=== PATIENT | female | born 1965 | race Caucasian/White ===

== ENCOUNTER 2023-07-13 14:57 | Emergency (ER) | payer MEDICARE, MEDICAID ==
[~2023-07-13] VITALS: Ht 167.6 cm; Wt 1.0 kg
[~2023-07-13 14:57] MED LIST: ALBU6.7H14 INH; NO HOME MEDS
[2023-07-13 15:05] VITALS: BP 95/72; PULSE 83; RESP 18; TEMP 97.9; O2SAT 94
[2023-07-13 16:18] LABS: ALANINE AMINOTRANSFERASE 51 U/L (12-78); ALBUMIN 3.7 G/DL (3.4-5.0); ALBUMIN/GLOBULIN RATIO 1.1 (1.1-1.5); ALKALINE PHOSPHATASE 95 IU/L (46-116); ANION GAP 5 (8-16); ASPARTATE AMINO TRANSFERASE 40 U/L (10-37); BILIRUBIN,TOTAL 0.8 MG/DL (0.1-1.0); BLOOD UREA NITROGEN 13 MG/DL (7-18); BUN/CREATININE RATIO 14.4 (10.0-20.0); CALCIUM 8.9 MG/DL (8.5-10.1); CHLORIDE 103 MMOL/L (99-107); GLUCOSE 107 MG/DL (70-104); LIPASE 24 U/L (16-77); POTASSIUM 4.1 MMOL/L (3.5-5.1); SODIUM 133 MMOL/L (135-145); TOTAL CARBON DIOXIDE 24.6 MMOL/L (24-32); eCRCL 1 ML/MIN; eGFR 65 ML/MIN
[2023-07-13 16:19] LABS: BASOPHILS % (AUTO) 0.1 % (0-1); EOSINOPHILS # (AUTO) 0.1 X10'3 (0-0.9); EOSINOPHILS % (AUTO) 0.7 % (0-6); HEMATOCRIT 45.5 % (35.0-45.0); HEMOGLOBIN 15.6 g/dl (12.0-16.0); LYMPHOCYTES # (AUTO) 1.7 X10'3 (1.1-4.8); LYMPHOCYTES % (AUTO) 23.7 % (21-51); MEAN CORPUSCULAR HEMOGLOBIN 32.5 PG (27.0-31.0); MEAN CORPUSCULAR HGB CONC 34.3 g/dL (33.0-36.5); MEAN CORPUSCULAR VOLUME 94.5 FL (78-98); MEAN PLATELET VOLUME 8.5 FL (7.4-10.4); MONOCYTES # (AUTO) 0.6 X10'3 (0-0.9); MONOCYTES % (AUTO) 8.4 % (2-12); NEUTROPHILS # (AUTO) 4.7 X10'3 (1.8-7.7); NEUTROPHILS % (AUTO) 67.1 % (42-75); PLATELET COUNT 197 X10'3 (140-440); RED BLOOD COUNT 4.82 X10'6 (4.20-5.60); RED CELL DISTRIBUTION WIDTH 12.8 % (11.5-14.5)
[2023-07-13 16:20] LABS: BILIRUBIN,URINE SMALL (Neg); CLARITY,URINE CLEAR (Clear); COLOR,URINE YELLOW (Yellow); GLUCOSE, URINE NEGATIVE (Neg); KETONES,URINE TRACE mg/dl (Neg); LEUKOCYTE ESTERASE ,URINE TRACE (Neg); NITRITES, URINE NEGATIVE (Neg); OCCULT BLOOD,URINE NEGATIVE (Neg); PH,URINE 5.5 (4.8-8.0); PROTEIN,URINE NEGATIVE (Neg); UROBILINOGEN,URINE 0.2 E.U/dL (0.2-1.0)
[2023-07-13 16:23] LABS: UA COLLECTION TYPE CLN CATCH MIDSTREAM
[2023-07-13 16:24] LABS: BACTERIA,URINE NONE SEEN /HPF (Neg); MUCUS STRANDS MODERATE /LPF (Neg); RBC,URINE NONE SEEN /HPF (0-2); SQUAMOUS EPITHELIAL CELL,UR FEW /LPF (FEW); WBC,URINE 0-4 /HPF (0-4)
== END 2023-07-14 02:22 | disposition left against medical advice (07) ==
LOC: ER 14:57
DX: R11.2 Nausea with vomiting, unspecified (principal); Z53.21 Procedure and treatment not carried out due to patient leaving prior to being seen by health care provider
CPT/HCPCS: 36415; 80053; 81001; 83690; 85025; 87088; 99281

== ENCOUNTER 2023-07-14 12:38 | Emergency (ER) | payer MEDICARE, MEDICAID | END 2023-07-14 13:51 | disposition left against medical advice (07) | LOC: ER 12:39 | DX: R10.9 Unspecified abdominal pain (principal); Z53.21 Procedure and treatment not carried out due to patient leaving prior to being seen by health care provider ==

== ENCOUNTER 2024-01-11 16:06 | Emergency (ER) | payer MEDICARE, MEDICAID ==
[~2024-01-11] VITALS: Ht 162.6 cm; Wt 72.7 kg
[2024-01-11] MEDS ORDERED: BENZ-38 PO (18:25)
[2024-01-11] MEDS ORDERED: GUAI600T45 PO (18:25)
[2024-01-11] MEDS ORDERED: PRED20TA PO (18:25)
[2024-01-11] MEDS ORDERED: AMOX-117 PO (18:25)
[2024-01-11] MEDS ORDERED: ALBU18HF2 INH (18:25)
[2024-01-11] MEDS: amox tr/potassium clavulanate 875/125mg TAB PO ONE (18:50)
[2024-01-11] MEDS: predniSONE 20 mg tablet PO ONE (18:50)
[2024-01-11 18:52] VITALS: BP 139/83; PULSE 84; RESP 18; TEMP 97.9; O2SAT 95
== END 2024-01-11 18:55 | disposition home or self-care (01) ==
LOC: ER 16:06
DX: J18.1 Lobar pneumonia, unspecified organism (principal); Z88.1 Allergy status to other antibiotic agents; Z79.899 Other long term (current) drug therapy; Z79.2 Long term (current) use of antibiotics; Z90.49 Acquired absence of other specified parts of digestive tract
CPT/HCPCS: 71046; 71250; 99284; J7512

== ENCOUNTER 2024-08-07 15:00 | Emergency (ER) | payer MEDICARE, MEDICAID ==
[~2024-08-07] VITALS: Ht 165.1 cm; Wt 73.5 kg
[~2024-08-07 15:00] MED LIST changes: +ALBU18HF2 INH; +GUAI600T45 PO
[2024-08-07] MEDS: LIDOcaine 1% 30ml preserv. free vial IJ STA (18:04)
[2024-08-07] MEDS: HYDROcodone/acetaminophen 10/325mg tab PO ONE (18:08)
[2024-08-07] MEDS: LIDOcaine/epinephrine/tetracaine TOPICAL sol 3 ML syringe TOP ONE (18:09)
[2024-08-07] MEDS ORDERED: HYDR-3965 PO ×2 (18:40→18:42)
[2024-08-07 19:07] VITALS: BP 120/89; PULSE 70; RESP 16; TEMP 98.5; O2SAT 98
== END 2024-08-07 19:11 | disposition home or self-care (01) ==
LOC: ER 15:00
DX: S62.011A Displaced fracture of distal pole of navicular [scaphoid] bone of right wrist, initial encounter for closed fracture (principal); S63.602A Unspecified sprain of left thumb, initial encounter; S16.1XXA Strain of muscle, fascia and tendon at neck level, initial encounter; Z88.1 Allergy status to other antibiotic agents; Z79.899 Other long term (current) drug therapy; Z90.49 Acquired absence of other specified parts of digestive tract; W01.0XXA Fall on same level from slipping, tripping and stumbling without subsequent striking against object, initial encounter; Y93.89 Activity, other specified; Y92.89 Other specified places as the place of occurrence of the external cause; Y99.8 Other external cause status
CPT/HCPCS: 29125; 72040; 73110; 73130; 73140; 99284; A4565; A6446; A6449

== ENCOUNTER 2024-08-13 18:57 | Emergency (ER) | payer MEDICARE, MEDICAID ==
[~2024-08-13] VITALS: Ht 167.6 cm; Wt 70.5 kg
[~2024-08-13 18:57] MED LIST changes: +HYDR-3965 PO
[2024-08-13 20:34] VITALS: BP 136/87; PULSE 80; RESP 16; TEMP 98.7; O2SAT 96
== END 2024-08-13 20:38 | disposition home or self-care (01) ==
LOC: ER 18:57
DX: S62.001A Unspecified fracture of navicular [scaphoid] bone of right wrist, initial encounter for closed fracture (principal); Z88.1 Allergy status to other antibiotic agents; Z79.899 Other long term (current) drug therapy; Z90.49 Acquired absence of other specified parts of digestive tract; X58.XXXA Exposure to other specified factors, initial encounter; Y93.89 Activity, other specified; Y92.89 Other specified places as the place of occurrence of the external cause; Y99.8 Other external cause status
CPT/HCPCS: 29125; 73110; 99283; A6449; L3908